=== PATIENT | male | born 1975 | race Caucasian/White ===

== ENCOUNTER 2020-04-17 15:56 | Emergency (ER) | payer OTHER ==
[~2020-04-17] VITALS: Ht 188 cm; Wt 129.3 kg
[~2020-04-17 15:56] MED LIST: AMLO5 PO; Bactrim Ds Tab1 EACH PO; DIAZ5 PO; GLIP2.5ER; HTN MED; HYDACE5 PO; IBUP800 PO; LOSA25; NAPR550 PO; OMEP40CA12 PO; OXYACE5T PO; [UNRECOGNIZED DRUG - OTHER] PO
== END 2020-04-17 18:23 | disposition home or self-care (01) ==
LOC: ER 15:56
DX: S43.102A Unspecified dislocation of left acromioclavicular joint, initial encounter (principal); S05.32XA Ocular laceration without prolapse or loss of intraocular tissue, left eye, initial encounter; S16.1XXA Strain of muscle, fascia and tendon at neck level, initial encounter; S39.012A Strain of muscle, fascia and tendon of lower back, initial encounter; S29.012A Strain of muscle and tendon of back wall of thorax, initial encounter; S70.12XA Contusion of left thigh, initial encounter; I10 Essential (primary) hypertension; E11.9 Type 2 diabetes mellitus without complications; Z79.899 Other long term (current) drug therapy; Z79.84 Long term (current) use of oral hypoglycemic drugs; Z87.891 Personal history of nicotine dependence; V89.2XXA Person injured in unspecified motor-vehicle accident, traffic, initial encounter
CPT/HCPCS: 12011; 72040; 72070; 72100; 73030; 73590; 99284-25; L0160

== ENCOUNTER 2025-06-24 12:29 | Day surgery (SDC) | payer OTHER ==
[~2025-06-24] VITALS: Ht 188 cm; Wt 114.2 kg
[~2025-06-24 12:29] MED LIST changes: +Balanced Salt Epinephrine Irrigation Solution 500 mL IR SCH; +JARDIANCE25 MG PO; +LEVOTHYROXINE50 MC9 PO; +Moxifloxacin HCL 0.5 MG/0.1 ML 0.4MLSYR LEFTEYE SCH; +Ondansetron 4 MG SoluTab MM PRN; +PHENYLEPHRINE\\TROPICAMIDE\\TETRACAINE OPHTHALMIC DILATING SOLN LEFTEYE PRN; +PIOG15 PO; +Povidone-Iodine 450 DROP/30 ML Solution LEFTEYE SCH; +Povidone-Iodine 450 DROP/30 ML Solution ONE; +ROSUVASTATIN CA10 MG PO; +TRULICITY0.75 MG/01 SC; +Tetracaine HCl/Pf 0.5% Opth Soln 4 ml ONE; +diazePAM 5 MG,diazePAM 2 MG PO SCH
[2025-06-24] MEDS ORDERED: VALSARTAN160 MG PO (12:56)
--- NOTE | 2025-06-24 13:06 | NUR ---
06/24/25 1306 Beverly Merida PT STATES ANXIETY IS AT A 4/10. 10MG VALIUM ADMINISTERED AT 1253. PT IS ON PULSE OXIMETRY SHOWING SPOR 99% ON RA. TETRACAINE IN AY 1256 PLEDGETT IN AT 1257 PT TOLERATED WELL CALL LIGHT WITHIN REACH
--- NOTE | 2025-06-24 13:21 | NUR ---
06/24/25 1321 Brianna Stoner VITALS AT 1321 BP: 149/89 P: 63 O2: 96% WITH 8 LITERS OF BLOW BY OXYGEN
[2025-06-24 13:39] VITALS: BP 161/97
== END 2025-06-24 13:53 | disposition home or self-care (01) ==
LOC: ORSCSDS 12:29
PROVIDERS: Student in an Organized Health Care Education/Training Program
PROC: 08RK3JZ Replacement of Left Lens with Synthetic Substitute, Percutaneous Approach (ICD-10-PCS; principal; 2025-06-24 14:00)
DX: E11.36 Type 2 diabetes mellitus with diabetic cataract (principal); H25.813 Combined forms of age-related cataract, bilateral; J45.909 Unspecified asthma, uncomplicated; I10 Essential (primary) hypertension; E07.9 Disorder of thyroid, unspecified; Z79.85 Long-term (current) use of injectable non-insulin antidiabetic drugs; Z79.84 Long term (current) use of oral hypoglycemic drugs; Z79.899 Other long term (current) drug therapy
CPT/HCPCS: A9270; V2632

== ENCOUNTER 2025-07-08 07:14 | Day surgery (SDC) | payer OTHER ==
[~2025-07-08] VITALS: Ht 188 cm; Wt 115.2 kg
[~2025-07-08 07:14] MED LIST changes: -Moxifloxacin HCL 0.5 MG/0.1 ML 0.4MLSYR LEFTEYE SCH; +Moxifloxacin HCL 0.5 MG/0.1 ML 0.4MLSYR RIGHTEYE SCH; -PHENYLEPHRINE\\TROPICAMIDE\\TETRACAINE OPHTHALMIC DILATING SOLN LEFTEYE PRN; +PHENYLEPHRINE\\TROPICAMIDE\\TETRACAINE OPHTHALMIC DILATING SOLN RIGHTEYE PRN; -Povidone-Iodine 450 DROP/30 ML Solution LEFTEYE SCH; +Povidone-Iodine 450 DROP/30 ML Solution RIGHTEYE SCH; +VALSARTAN160 MG PO; -diazePAM 5 MG,diazePAM 2 MG PO SCH
--- NOTE | 2025-07-08 08:21 | NUR ---
07/08/25 0821 Adrianne Carrillo HR:65 SPO2:93% ON 10L BLOW BY O2 BP:124/78
[2025-07-08 08:46] VITALS: BP 113/78
== END 2025-07-08 08:46 | disposition home or self-care (01) ==
LOC: ORSCSDS 07:14
PROVIDERS: Student in an Organized Health Care Education/Training Program
PROC: 08RJ3JZ Replacement of Right Lens with Synthetic Substitute, Percutaneous Approach (ICD-10-PCS; principal; 2025-07-08 08:30)
DX: E11.36 Type 2 diabetes mellitus with diabetic cataract (principal); H25.811 Combined forms of age-related cataract, right eye; Z96.1 Presence of intraocular lens; I10 Essential (primary) hypertension; J45.909 Unspecified asthma, uncomplicated; Z79.85 Long-term (current) use of injectable non-insulin antidiabetic drugs; Z79.84 Long term (current) use of oral hypoglycemic drugs; Z79.899 Other long term (current) drug therapy
CPT/HCPCS: A9270; J2003; V2632